=== PATIENT | female | born 1960 | race Caucasian/White ===

== ENCOUNTER 2024-09-07 06:41 | Day surgery (SDC) | payer OTHER ==
[2024-08-31 14:58] LABS: BASOPHILS % (AUTO) 0.6 % (0-1); EOSINOPHILS # (AUTO) 0.3 X10'3 (0-0.9); EOSINOPHILS % (AUTO) 3.5 % (0-6); LYMPHOCYTES # (AUTO) 2.7 X10'3 (1.1-4.8); LYMPHOCYTES % (AUTO) 35.9 % (21-51); MEAN CORPUSCULAR HEMOGLOBIN 30.2 PG (27.0-31.0); MEAN CORPUSCULAR HGB CONC 33.2 g/dL (33.0-36.5); MEAN CORPUSCULAR VOLUME 90.9 FL (78-98); MONOCYTES # (AUTO) 0.5 X10'3 (0-0.9); MONOCYTES % (AUTO) 6.2 % (2-12); NEUTROPHILS % (AUTO) 53.8 % (42-75); PRE OP HEMATOCRIT 42.7 % (35.0-45.0); PRE OP HEMOGLOBIN 14.2 g/dL (12.0-16.0); PRE OP PLATELET COUNT 232 X10'3 (140-440); PRE OP WHITE BLOOD COUNT 7.5 10'3 (4.8-10.8); RED BLOOD COUNT 4.69 X10'6 (4.20-5.60); RED CELL DISTRIBUTION WIDTH 14.2 % (11.5-14.5)
[2024-08-31 15:00] LABS: BILIRUBIN,URINE NEGATIVE (Neg); COLOR,URINE YELLOW (Yellow); GLUCOSE, URINE NEGATIVE (Neg); KETONES,URINE TRACE mg/dl (Neg); LEUKOCYTE ESTERASE ,URINE SMALL (Neg); NITRITES, URINE NEGATIVE (Neg); OCCULT BLOOD,URINE NEGATIVE (Neg); PROTEIN,URINE NEGATIVE (Neg); UROBILINOGEN,URINE 0.2 E.U/dL (0.2-1.0)
[2024-08-31 15:05] LABS: CLARITY,URINE SLIGHTLY CLOUDY (Clear); UA COLLECTION TYPE CLN CATCH MIDSTREAM
[2024-08-31 15:07] LABS: SQUAMOUS EPITHELIAL CELL,UR MANY /LPF (FEW); WBC,URINE 30-50 /HPF (0-4)
[2024-08-31 15:09] LABS: BACTERIA,URINE FEW /HPF (Neg); RBC,URINE NONE SEEN /HPF (0-2); TRANSITIONAL EPI CELLS,URINE MODERATE /HPF
[2024-08-31 15:20] LABS: ALBUMIN 3.9 G/DL (3.4-5.0); ALBUMIN/GLOBULIN RATIO 1.1 (1.1-1.5); ALKALINE PHOSPHATASE 62 IU/L (46-116); BLOOD UREA NITROGEN 23 MG/DL (7-18); BUN/CREATININE RATIO 24.7 (10.0-20.0); CALCIUM 9.3 MG/DL (8.5-10.1); CHLORIDE 106 MMOL/L (99-107); CREATININE 0.93 MG/DL (0.40-0.90); PRE OP ALT 31 U/L (30-65); PRE OP ANION GAP 6 (8-16); PRE OP AST 19 U/L (10-37); PRE OP BILIRUB, TOTAL 0.5 MG/DL (0.0-1.0); PRE OP GLUCOSE 99 MG/DL (70-104); PRE OP SODIUM 142 MMOL/L (135-145); TOTAL CARBON DIOXIDE 30.5 MMOL/L (24-32); TOTAL PROTEIN 7.6 G/DL (6.4-8.2); eGFR 61 ML/MIN
[2024-09-07] VITALS (8 sets, daily range): BP systolic 112–168; BP diastolic 52–87; PULSE 71–90; RESP 9–16; TEMP 96.9–98; O2SAT 91–100
[~2024-09-07] VITALS: Ht 170.2 cm; Wt 96.9 kg
[2024-09-07] MEDS: ceFAZolin 2gm in dextrose, iso 50 ML IV ONE (05:30)
[~2024-09-07 06:41] MED LIST: ASPI81TA52 PO; CHOL10006 PO; CITA10TA93 PO; LEVO25TA7 PO; TRAZ150T78 PO
[2024-09-07] MEDS: ringers solution, lacted 1,000 ML IV SCH (07:17)
[2024-09-07] MEDS: famotidine 20mg tablet PO ONE (07:17)
[2024-09-07] MEDS ORDERED: BUPIVAcaine 2.5mg/ml inj 50ml vial (contains preservative) ONE (09:11)
[2024-09-07] MEDS ORDERED: sevoflurane 250ml liquid IH ONE (09:12)
[2024-09-07] MEDS ORDERED: midazolam 1 mg/ML 2ml injection ONE (09:17)
[2024-09-07] MEDS ORDERED: fentaNYL/PF 50MCG/1 ML 2ML syringe ONE ×2 (09:17→09:42)
[2024-09-07] MEDS ORDERED: propofol inj 20 ML IV ONE (09:41)
[2024-09-07] MEDS ORDERED: morphine 4 MG/ML inj SYRINge IV PRN (09:55)
[2024-09-07] MEDS ORDERED: morphine 2 MG/ML inj. syringe IV PRN (09:55)
[2024-09-07] MEDS ORDERED: ondansetron/PF 4mg/2ml inj IV PRN (09:55)
[2024-09-07] MEDS ORDERED: proCHLORperazine 10 MG/2 ml inj IV PRN (09:55)
[2024-09-07] MEDS ORDERED: ringers solution, lacted 1,000 ML IV SCH (09:55)
[2024-09-07] MEDS ORDERED: meperidine/PF 25mg/ml syringe IV PRN ×3 (09:55)
[2024-09-07] MEDS ORDERED: ondansetron/PF 4mg/2ml inj ONE (11:17)
[2024-09-07] MEDS ORDERED: dexamethasone sod phosphate 4mg/ml inj. ONE (11:17)
== END 2024-09-07 12:27 | disposition home or self-care (01) ==
LOC: PAS 06:41
PROVIDERS: ATTEND Podiatrist Foot & Ankle Surgery
DX: M21.621 Bunionette of right foot (principal); M79.671 Pain in right foot; M20.11 Hallux valgus (acquired), right foot; E66.9 Obesity, unspecified; Z79.890 Hormone replacement therapy; Z79.891 Long term (current) use of opiate analgesic; Z79.899 Other long term (current) drug therapy
CPT/HCPCS: 28110; 28270; 28296; 28308; 36415; 73620; 80053; 81001; 82948; 85025; 93005; A6223; C1713; J0690; J1100; J2250; J2405; J2704; J3010; J3490; J7030; J7120; Z7506; Z7508; Z7512; 76000; A4215; A4618; A6449; A7000